=== PATIENT | male | born 1985 | race African-American/Black ===

== ENCOUNTER 2016-12-17 17:17 | Emergency (ER) | payer OTHER ==
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
== END 2016-12-17 19:04 | disposition home or self-care (01) ==
LOC: CED 17:17
DX: S30.0XXA Contusion of lower back and pelvis, initial encounter (principal); S10.83XA Contusion of other specified part of neck, initial encounter; F17.200 Nicotine dependence, unspecified, uncomplicated; V49.40XA Driver injured in collision with unspecified motor vehicles in traffic accident, initial encounter; Y92.410 Unspecified street and highway as the place of occurrence of the external cause
CPT/HCPCS: 71020; 72040; 72100; 99284

== ENCOUNTER 2017-04-01 14:05 | Emergency (ER) | payer OTHER ==
[~2017-04-01] VITALS: Ht 160 cm; Wt 57.1 kg
== END 2017-04-01 15:17 | disposition home or self-care (01) ==
LOC: SED 14:05
DX: L02.413 Cutaneous abscess of right upper limb (principal); F17.210 Nicotine dependence, cigarettes, uncomplicated; Z98.890 Other specified postprocedural states
CPT/HCPCS: 10060; 99283